=== PATIENT | male | born 1980 | race Two or more races ===

== ENCOUNTER 2019-10-26 09:40 | Observation (INO) | payer SELFPAY ==
[~2019-10-26] VITALS: Ht 167.6 cm; Wt 85.2 kg
[2019-10-26] MEDS ORDERED: IV NORMAL SALINE 1000ML BAG 1,000 ML IV ONE (10:15)
[2019-10-26 10:21] LABS: BASO # 0.1 x10^3/uL (0.0-0.2); BASO % 1 % (0-3); EOS # 0.1 x10^3/uL (0.0-0.7); EOS % 1 % (0-3); HEMATOCRIT 36.5 % (39.0-53.0); HEMOGLOBIN 12.5 g/dL (13.0-17.5); LYMPH # 2.5 x10^3/uL (1.0-4.8); LYMPH % 23 % (24-48); MEAN CORPUSCULAR HEMOGLOBIN 30 pg (25-35); MEAN CORPUSCULAR HGB CONC 34 g/dL (31-37); MEAN CORPUSCULAR VOLUME 89 fL (79-100); MONO # 0.9 x10^3/uL (0.0-1.1); MONO % 8 % (0-9); NEUT # 7.2 x10^3/uL (1.8-7.7); NEUT % 67 % (31-73); PLATELET COUNT 302 x10^3/uL (140-400); RED CELL DISTRIBUTION WIDTH 13.2 % (11.5-14.5); WHITE BLOOD COUNT 10.7 x10^3/uL (4.0-11.0)
[2019-10-26 10:22] LABS: BILIRUBIN,URINE NEGATIVE (NEG); CLARITY,URINE CLEAR; COLOR,URINE YELLOW; NITRITE,URINE NEGATIVE (NEG); PH,URINE 5.5 (<5.0-8.0); PROTEIN,URINE NEGATIVE (NEG-TRACE); UROBILINOGEN,URINE 0.2 mg/dL (0.2 mg/dL)
[2019-10-26 10:28] LABS: CALCIUM 9.1 mg/dL (8.5-10.1); GFR 82.8; POTASSIUM 3.6 mmol/L (3.5-5.1)
[2019-10-26 10:30] LABS: AMORPHOUS SEDIMENT,UR PRESENT /HPF; BACTERIA,URINE FEW /HPF (0-FEW); HYALINE CASTS, URINE FEW /HPF; RBC,URINE 0 /HPF (0-2); SQUAMOUS EPITHELIAL CELL,UR OCC /LPF
[2019-10-26 10:35] LABS: ALBUMIN 3.7 g/dL (3.4-5.0); ALBUMIN/GLOBULIN RATIO 1.2 (1.0-1.7); TOTAL BILIRUBIN 0.2 mg/dL (0.2-1.0); TOTAL PROTEIN 6.8 g/dL (6.4-8.2)
[2019-10-26] MEDS ORDERED: IOHEXOL 240 MG/ML 50ML VIAL. PO ONE (11:00)
[2019-10-26] MEDS ORDERED: IOHEXOL 300 MG/ML 100ML VIAL. IV ONE (11:00)
--- NOTE | 2019-10-26 11:59 | PHYS DOC ---
Past Medical History Past Medical History: Other Additional Past Medical Histor: GASTRIC ULCER Past Surgical History: No Surgical History Smoking Status: Never Smoker Alcohol Use: None General Adult EDM: Chief Complaint: ABDOMINAL PAIN HPI: HPI: Patient is a 38 year old male who presents with who presents to the Emergency Room complaining of mid abdominal pain that has been going on "for awhile." He believes he had an abdominal ulcer. He states it has been getting worse. Denies any associated nausea, vomiting, diarrhea, fever, anorexia. He had some blood in his stools last week, however this has resolved. Review of Systems: Review of Systems: General: Denies fever, chills, sweats, fatigue Eyes: Denies drainage, blurred vision HENT: Denies rhinorrhea, sore throat Respiratory: Denies cough, shortness of breath, wheezing Cardiac: Denies edema, palpitations, chest pain GI: Denies N/V reports abdominal pain MSK: Denies back pain, neck pain Skin: Denies rash, jaundice Neuro: Denies headache, dizziness Psychiatric: Denies SI/HI Heart Score: Risk Factors: Risk Factors: DM, Current or recent (<one month) smoker, HTN, HLP, family history of CAD, obesity. Risk Scores: Score 0 - 3: 2.5% MACE over next 6 weeks - Discharge Home Score 4 - 6: 20.3% MACE over next 6 weeks - Admit for Clinical Observation Score 7 - 10: 72.7% MACE over next 6 weeks - Early Invasive Strategies Current Medications: Current Medications Medications (Trade) Dose Ordered Sig/Tasneem Start Time Stop Time Status Last Admin Dose Admin Iohexol (Omnipaque 240 Mg/ml) 30 ml 1X ONCE 10/26/19 11:00 10/26/19 11:01 DC Iohexol (Omnipaque 300 Mg/ml) 75 ml 1X ONCE 10/26/19 11:00 10/26/19 11:01 DC Sodium Chloride 1,000 ml @ 0 mls/hr 1X ONCE 10/26/19 10:15 10/26/19 10:17 DC 10/26/19 10:19 999 MLS/HR Allergies: Allergies: Allergies Coded Allergies Type Severity Reaction Last Updated Verified No Known Drug Allergies 10/26/19 No Physical Exam: PE: Constitutional: Well developed, well nourished, Cooperative, NAD, non-toxic appearing HEENT: Normocephalic, atraumatic, oropharynx moist, EOMI, PERRL, no drainage from eyes, normal conjunctiva Neck: Supple, normal range of motion, no stridor Cardiovascular: RRR, 2+ radial pulses bilaterally, no edema Respiratory: CTA bilaterally, no respiratory distress, no wheezing/crackles Abdomen: Soft, nontender, nondistended, no masses Skin: Warm, dry, intact Extremities: No obvious deformities Neurologic: Alert and Oriented x3, motor and sensory function grossly normal, no focal deficits Psychologic: Normal affect, normal judgment, normal mood. No SI/HI Current Patient Data: Labs: Laboratory Tests Test 10/26/19 10:04 White Blood Count 10.7 x10^3/uL (4.0-11.0) Red Blood Count 4.10 x10^6/uL (4.30-5.70) L Hemoglobin 12.5 g/dL (13.0-17.5) L Hematocrit 36.5 % (39.0-53.0) L Mean Corpuscular Volume 89 fL (79-100) Mean Corpuscular Hemoglobin 30 pg (25-35) Mean Corpuscular Hemoglobin Concent 34 g/dL (31-37) Red Cell Distribution Width 13.2 % (11.5-14.5) Platelet Count 302 x10^3/uL (140-400) Neutrophils (%) (Auto) 67 % (31-73) Lymphocytes (%) (Auto) 23 % (24-48) L Monocytes (%) (Auto) 8 % (0-9) Eosinophils (%) (Auto) 1 % (0-3) Basophils (%) (Auto) 1 % (0-3) Neutrophils # (Auto) 7.2 x10^3/uL (1.8-7.7) Lymphocytes # (Auto) 2.5 x10^3/uL (1.0-4.8) Monocytes # (Auto) 0.9 x10^3/uL (0.0-1.1) Eosinophils # (Auto) 0.1 x10^3/uL (0.0-0.7) Basophils # (Auto) 0.1 x10^3/uL (0.0-0.2) Urine Collection Type Void Urine Color Yellow Urine Clarity Clear Urine pH 5.5 (<5.0-8.0) Urine Specific [place] >=1.030 (1.000-1.030) Urine Protein Negative mg/dL (NEG-TRACE) Urine Glucose (UA) Negative mg/dL (NEG) Urine Ketones (Stick) Negative mg/dL (NEG) Urine Blood Negative (NEG) Urine Nitrite Negative (NEG) Urine Bilirubin Negative (NEG) Urine Urobilinogen Dipstick 0.2 mg/dL (0.2 mg/dL) Urine Leukocyte Esterase Negative (NEG) Urine RBC 0 /HPF (0-2) Urine WBC 1-4 /HPF (0-4) Urine Squamous Epithelial Cells Occ /LPF Urine Amorphous Sediment Present /HPF Urine Bacteria Few /HPF (0-FEW) Urine Hyaline Casts Few /HPF Urine Mucus Marked /LPF Sodium Level 137 mmol/L (136-145) Potassium Level 3.6 mmol/L (3.5-5.1) Chloride Level 101 mmol/L (98-107) Carbon Dioxide Level 26 mmol/L (21-32) Anion Gap 10 (6-14) Blood Urea Nitrogen 24 mg/dL (8-26) Creatinine 1.0 mg/dL (0.7-1.3) Estimated GFR (Cockcroft-Gault) 82.8 BUN/Creatinine Ratio 24 (6-20) H Glucose Level 134 mg/dL (70-99) H Calcium Level 9.1 mg/dL (8.5-10.1) Total Bilirubin 0.2 mg/dL (0.2-1.0) Aspartate Amino Transferase (AST) 28 U/L (15-37) Alanine Aminotransferase (ALT) 37 U/L (16-63) Alkaline Phosphatase 99 U/L (46-116) Total Protein 6.8 g/dL (6.4-8.2) Albumin 3.7 g/dL (3.4-5.0) Albumin/Globulin Ratio 1.2 (1.0-1.7) Lipase 96 U/L (73-393) Laboratory Tests 10/26/19 10:04 Laboratory Tests 10/26/19 10:04 Vital Signs: Vital Signs Date Time Temp Pulse Resp B/P (MAP) Pulse Ox O2 Delivery O2 Flow Rate FiO2 10/26/19 11:25 104 123/72 (89) 98 Room Air 10/26/19 09:55 98.7 24 98.7 EKG: EKG: [] Radiology/Procedures: Radiology/Procedures: [] Course & Med Decision Making: Course & Med Decision Making Pertinent Labs and Imaging studies reviewed. (See chart for details) Patient is a 38 year old male who presents to the Emergency Room complaining of abdominal pain that is acutely worsening. Abdominal labs and CT a/p were ordered due to patient's tenderness and tachycardia. Patient has duodenitis and likely duodenal ulcer which raises concern for H pylori. He also has a mass on his kidney that could be a hemorrhagic cyst versus cancer. Radiology is recommending an MRI. Patient will be admitted for evaluation of this mass as well as evaluation of his likely ulcer. Dragon Disclaimer: Dragon Disclaimer: This electronic medical record was generated, in whole or in part, using a voice recognition dictation system. Departure Departure Impression: Primary Impression: Duodenitis Additional Impression: Right kidney mass Disposition: ADMITTED INPATIENT Referrals: NO PCP (PCP) Justicifation of Admission Dx: Justifications for Admission: Justification of Admission Dx: Yes DIPESH LEVY MD Oct 26, 2019 11:58
--- NOTE | 2019-10-26 12:38 | RAD ---
CT of the abdomen and pelvis with contrast 10/26/2019 12:28 PM Indication: Reason: abdominal pain Comparison study: None Technique: Multidetector CT imaging of the abdomen and pelvis was performed following the administration of IV contrast. Findings: The partially visualized lung bases demonstrate no acute abnormality. There is periduodenal fat stranding possible mild thickening of the duodenal wall. Evaluation is limited without oral contrast. No pneumoperitoneum is identified. Findings could reflect mild duodenitis. Duodenal ulcer could produce this appearance. Small lymph nodes are seen adjacent to the duodenum, slightly more prominent than is typically seen, but not pathologically enlarged by size criterion. The liver, gallbladder, spleen, and adrenal glands are unremarkable.The pancreas is unremarkable in appearance. Left kidney is normal in appearance. There is an exophytic lesion arising from the right kidney measuring is 1.3 cm partially cystic mass arising from the lateral right kidney. Attenuation characteristics are greater than the expected for a simple appearing cyst. A multiphase renal protocol MRI or CT scan is recommended for further characterization. No acute osseous changes are seen. IMPRESSION: 1. Relatively mild appearing periduodenal inflammatory change and mild adjacent lymph nodes While nonspecific findings could reflect duodenitis or duodenal ulcer. Consider endoscopy as clinically indicated. 2. 1.3 cm nonspecific mass arising from the lateral right kidney. Differential considerations include an atypical hemorrhagic cyst versus solid mass/neoplasm. Multiphase renal protocol CT/MRI recommended for further characterization CT DOSING PQRS STATEMENT: One or more of the following individualized dose reduction techniques were utilized for this examination: 1. Automated exposure control 2. Adjustment of the mA and/or kV according to patient size 3. Use of iterative reconstruction technique Electronically signed by: Eric Vega MD (10/26/2019 12:35 PM) [id number]
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
[2019-10-26] MEDS: IV NORMAL SALINE 1000ML BAG 1,000 ML IV SCH (16:13)
[2019-10-26] MEDS: PANTOPRAZOLE IV PUSH 40 MG VIAL. IVP SCH (16:13)
[2019-10-26 19:00] VITALS: BP 134/82
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
[2019-10-26 23:00] VITALS: BP 133/81
[2019-10-26] MEDS ORDERED: ZOLPIDEM 5 MG TABLET. PO PRN (23:00)
[2019-10-27 03:00] VITALS: BP 136/89
[2019-10-27 04:47] LABS: HEMATOCRIT 31.9 % (39.0-53.0); HEMOGLOBIN 10.9 g/dL (13.0-17.5); RED BLOOD COUNT 3.55 x10^6/uL (4.30-5.70); RED CELL DISTRIBUTION WIDTH 13.2 % (11.5-14.5); WHITE BLOOD COUNT 8.5 x10^3/uL (4.0-11.0)
[2019-10-27] MEDS: IV NORMAL SALINE 1000ML BAG 1,000 ML IV SCH (05:15)
[2019-10-27 05:16] LABS: CREATININE 0.8 mg/dL (0.7-1.3); GFR 107.1
[2019-10-27 07:00] VITALS: BP 143/87
[2019-10-27] MEDS: PANTOPRAZOLE IV PUSH 40 MG VIAL. IVP SCH (08:51)
--- NOTE | 2019-10-27 09:16 | PDOC ---
PROGRESS NOTES History of Present Illness History of Present Illness ASSESSMENT AND PLAN: Abdominal pain possible duodenal ulcer incidental finding of 1.3 cm renal mass versus a cyst. 1.3 cm nonspecific mass arising from the lateral right kidney. Differential considerations include an atypical hemorrhagic cyst versus solid mass/neoplasm admitted, proton pump inhibitors, consult GI. Trend hemoglobin. Regarding the renal mass WE do not have Urology here. Home meds, DVTprophylaxis. Full code. P.r.n. pain meds, p.r.n. Zofran. not overtly bleeding so no need for endoscopy Vitals Vitals Vital Signs Date Time Temp Pulse Resp B/P (MAP) Pulse Ox O2 Delivery O2 Flow Rate FiO2 10/27/19 07:00 98.1 90 16 143/87 (105) 98 Room Air 98.1 Physical Exam Physical Exam EYES: Extraocular muscles are intact, pupils are equally round and reactive to light and accommodation MUSCULOSKELETAL: Well developed, well nourished, good range of motion ENDOCRINE: No thyromegaly was palpated LYMPHATICS: No cervical chain or axillary nodes were noted HEMATOPOIETIC: No bruising NECK: Supple, no JVD, no thyromegaly was noted. LUNGS: Clear to auscultation in all lung spencer without rhonchi or wheezing. HEART: RRR, S1, S2 present. Peripheral pulses intact, no obvious murmurs were noted. ABDOMEN: Soft, nontender. Positive bowel sounds no organomegaly, normal bowel sounds. EXTREMITIES: Without any cyanosis, clubbing, or edema. Pedal pulses intact, Homans sign is negative. NEUROLOGIC: Normal speech, normal tone. A & O x3, moves all extremities, no obvious focal deficits. PSYCHIATRIC: Normal affect, normal mood. Stable. SKIN: No ulcerations or rashes, good skin turgor, no jaundice. VASCULAR: Good capillary refill, neurovascular bundle appears to be intact. General: Alert, Oriented X3, Cooperative, No acute distress Heart: Regular rate, No murmurs Lungs: Clear Abdomen: Normal bowel sounds, Soft, No tenderness Extremities: No cyanosis, No edema Skin: No breakdown, No significant lesion Labs LABS CT of the abdomen and pelvis with contrast 10/26/2019 12:28 PM Indication: Reason: abdominal pain Comparison study: None Technique: Multidetector CT imaging of the abdomen and pelvis was performed following the administration of IV contrast. Findings: The partially visualized lung bases demonstrate no acute abnormality. There is periduodenal fat stranding possible mild thickening of the duodenal wall. Evaluation is limited without oral contrast. No pneumoperitoneum is identified. Findings could reflect mild duodenitis. Duodenal ulcer could produce this appearance. Small lymph nodes are seen adjacent to the duodenum, slightly more prominent than is typically seen, but not pathologically enlarged by size criterion. The liver, gallbladder, spleen, and adrenal glands are unremarkable.The pancreas is unremarkable in appearance. Left kidney is normal in appearance. There is an exophytic lesion arising from the right kidney measuring is 1.3 cm partially cystic mass arising from the lateral right kidney. Attenuation characteristics are greater than the expected for a simple appearing cyst. A multiphase renal protocol MRI or CT scan is recommended for further characterization. No acute osseous changes are seen. IMPRESSION: 1. Relatively mild appearing periduodenal inflammatory change and mild adjacent lymph nodes While nonspecific findings could reflect duodenitis or duodenal ulcer. Consider endoscopy as clinically indicated. 2. 1.3 cm nonspecific mass arising from the lateral right kidney. Differential considerations include an atypical hemorrhagic cyst versus solid mass/neoplasm. Multiphase renal protocol CT/MRI recommended for further characterization CT DOSING PQRS STATEMENT: One or more of the following individualized dose reduction techniques were utilized for this examination: 1. Automated exposure control 2. Adjustment of the mA and/or kV according to patient size 3. Use of iterative reconstruction technique Electronically signed by: Eric Wong MD (10/26/2019 12:35 PM) [id number] DICTATED and SIGNED BY: ERIC WONG MD DATE: 10/26/19 1235 Laboratory Tests Test 10/26/19 10:04 10/27/19 03:40 White Blood Count 10.7 x10^3/uL (4.0-11.0) 8.5 x10^3/uL (4.0-11.0) Red Blood Count 4.10 x10^6/uL (4.30-5.70) 3.55 x10^6/uL (4.30-5.70) Hemoglobin 12.5 g/dL (13.0-17.5) 10.9 g/dL (13.0-17.5) Hematocrit 36.5 % (39.0-53.0) 31.9 % (39.0-53.0) Mean Corpuscular Volume 89 fL (79-100) 90 fL (79-100) Mean Corpuscular Hemoglobin 30 pg (25-35) 31 pg (25-35) Mean Corpuscular Hemoglobin Concent 34 g/dL (31-37) 34 g/dL (31-37) Red Cell Distribution Width 13.2 % (11.5-14.5) 13.2 % (11.5-14.5) Platelet Count 302 x10^3/uL (140-400) 259 x10^3/uL (140-400) Neutrophils (%) (Auto) 67 % (31-73) Lymphocytes (%) (Auto) 23 % (24-48) Monocytes (%) (Auto) 8 % (0-9) Eosinophils (%) (Auto) 1 % (0-3) Basophils (%) (Auto) 1 % (0-3) Neutrophils # (Auto) 7.2 x10^3/uL (1.8-7.7) Lymphocytes # (Auto) 2.5 x10^3/uL (1.0-4.8) Monocytes # (Auto) 0.9 x10^3/uL (0.0-1.1) Eosinophils # (Auto) 0.1 x10^3/uL (0.0-0.7) Basophils # (Auto) 0.1 x10^3/uL (0.0-0.2) Urine Collection Type Void Urine Color Yellow Urine Clarity Clear Urine pH 5.5 (<5.0-8.0) Urine Specific [place] >=1.030 (1.000-1.030) Urine Protein Negative mg/dL (NEG-TRACE) Urine Glucose (UA) Negative mg/dL (NEG) Urine Ketones (Stick) Negative mg/dL (NEG) Urine Blood Negative (NEG) Urine Nitrite Negative (NEG) Urine Bilirubin Negative (NEG) Urine Urobilinogen Dipstick 0.2 mg/dL (0.2 mg/dL) Urine Leukocyte Esterase Negative (NEG) Urine RBC 0 /HPF (0-2) Urine WBC 1-4 /HPF (0-4) Urine Squamous Epithelial Cells Occ /LPF Urine Amorphous Sediment Present /HPF Urine Bacteria Few /HPF (0-FEW) Urine Hyaline Casts Few /HPF Urine Mucus Marked /LPF Sodium Level 137 mmol/L (136-145) 135 mmol/L (136-145) Potassium Level 3.6 mmol/L (3.5-5.1) 4.0 mmol/L (3.5-5.1) Chloride Level 101 mmol/L (98-107) 102 mmol/L (98-107) Carbon Dioxide Level 26 mmol/L (21-32) 25 mmol/L (21-32) Anion Gap 10 (6-14) 8 (6-14) Blood Urea Nitrogen 24 mg/dL (8-26) 19 mg/dL (8-26) Creatinine 1.0 mg/dL (0.7-1.3) 0.8 mg/dL (0.7-1.3) Estimated GFR (Cockcroft-Gault) 82.8 107.1 BUN/Creatinine Ratio 24 (6-20) Glucose Level 134 mg/dL (70-99) 92 mg/dL (70-99) Calcium Level 9.1 mg/dL (8.5-10.1) 8.0 mg/dL (8.5-10.1) Total Bilirubin 0.2 mg/dL (0.2-1.0) Aspartate Amino Transf (AST/SGOT) 28 U/L (15-37) Alanine Aminotransferase (ALT/SGPT) 37 U/L (16-63) Alkaline Phosphatase 99 U/L (46-116) Total Protein 6.8 g/dL (6.4-8.2) Albumin 3.7 g/dL (3.4-5.0) Albumin/Globulin Ratio 1.2 (1.0-1.7) Lipase 96 U/L (73-393) Assessment and Plan Assessmemt and Plan Problems Medical Problems: (1) Duodenitis Status: Acute (2) Right kidney mass Status: Acute Comment Review of Relevant I have reviewed the following items rosa (where applicable) has been applied. Labs Laboratory Tests Test 10/26/19 10:04 10/27/19 03:40 White Blood Count 10.7 x10^3/uL (4.0-11.0) 8.5 x10^3/uL (4.0-11.0) Red Blood Count 4.10 x10^6/uL (4.30-5.70) 3.55 x10^6/uL (4.30-5.70) Hemoglobin 12.5 g/dL (13.0-17.5) 10.9 g/dL (13.0-17.5) Hematocrit 36.5 % (39.0-53.0) 31.9 % (39.0-53.0) Mean Corpuscular Volume 89 fL (79-100) 90 fL (79-100) Mean Corpuscular Hemoglobin 30 pg (25-35) 31 pg (25-35) Mean Corpuscular Hemoglobin Concent 34 g/dL (31-37) 34 g/dL (31-37) Red Cell Distribution Width 13.2 % (11.5-14.5) 13.2 % (11.5-14.5) Platelet Count 302 x10^3/uL (140-400) 259 x10^3/uL (140-400) Neutrophils (%) (Auto) 67 % (31-73) Lymphocytes (%) (Auto) 23 % (24-48) Monocytes (%) (Auto) 8 % (0-9) Eosinophils (%) (Auto) 1 % (0-3) Basophils (%) (Auto) 1 % (0-3) Neutrophils # (Auto) 7.2 x10^3/uL (1.8-7.7) Lymphocytes # (Auto) 2.5 x10^3/uL (1.0-4.8) Monocytes # (Auto) 0.9 x10^3/uL (0.0-1.1) Eosinophils # (Auto) 0.1 x10^3/uL (0.0-0.7) Basophils # (Auto) 0.1 x10^3/uL (0.0-0.2) Urine Collection Type Void Urine Color Yellow Urine Clarity Clear Urine pH 5.5 (<5.0-8.0) Urine Specific [place] >=1.030 (1.000-1.030) Urine Protein Negative mg/dL (NEG-TRACE) Urine Glucose (UA) Negative mg/dL (NEG) Urine Ketones (Stick) Negative mg/dL (NEG) Urine Blood Negative (NEG) Urine Nitrite Negative (NEG) Urine Bilirubin Negative (NEG) Urine Urobilinogen Dipstick 0.2 mg/dL (0.2 mg/dL) Urine Leukocyte Esterase Negative (NEG) Urine RBC 0 /HPF (0-2) Urine WBC 1-4 /HPF (0-4) Urine Squamous Epithelial Cells Occ /LPF Urine Amorphous Sediment Present /HPF Urine Bacteria Few /HPF (0-FEW) Urine Hyaline Casts Few /HPF Urine Mucus Marked /LPF Sodium Level 137 mmol/L (136-145) 135 mmol/L (136-145) Potassium Level 3.6 mmol/L (3.5-5.1) 4.0 mmol/L (3.5-5.1) Chloride Level 101 mmol/L (98-107) 102 mmol/L (98-107) Carbon Dioxide Level 26 mmol/L (21-32) 25 mmol/L (21-32) Anion Gap 10 (6-14) 8 (6-14) Blood Urea Nitrogen 24 mg/dL (8-26) 19 mg/dL (8-26) Creatinine 1.0 mg/dL (0.7-1.3) 0.8 mg/dL (0.7-1.3) Estimated GFR (Cockcroft-Gault) 82.8 107.1 BUN/Creatinine Ratio 24 (6-20) Glucose Level 134 mg/dL (70-99) 92 mg/dL (70-99) Calcium Level 9.1 mg/dL (8.5-10.1) 8.0 mg/dL (8.5-10.1) Total Bilirubin 0.2 mg/dL (0.2-1.0) Aspartate Amino Transf (AST/SGOT) 28 U/L (15-37) Alanine Aminotransferase (ALT/SGPT) 37 U/L (16-63) Alkaline Phosphatase 99 U/L (46-116) Total Protein 6.8 g/dL (6.4-8.2) Albumin 3.7 g/dL (3.4-5.0) Albumin/Globulin Ratio 1.2 (1.0-1.7) Lipase 96 U/L (73-393) Laboratory Tests Test 10/26/19 10:04 10/27/19 03:40 White Blood Count 10.7 x10^3/uL (4.0-11.0) 8.5 x10^3/uL (4.0-11.0) Red Blood Count 4.10 x10^6/uL (4.30-5.70) 3.55 x10^6/uL (4.30-5.70) Hemoglobin 12.5 g/dL (13.0-17.5) 10.9 g/dL (13.0-17.5) Hematocrit 36.5 % (39.0-53.0) 31.9 % (39.0-53.0) Mean Corpuscular Volume 89 fL (79-100) 90 fL (79-100) Mean Corpuscular Hemoglobin 30 pg (25-35) 31 pg (25-35) Mean Corpuscular Hemoglobin Concent 34 g/dL (31-37) 34 g/dL (31-37) Red Cell Distribution Width 13.2 % (11.5-14.5) 13.2 % (11.5-14.5) Platelet Count 302 x10^3/uL (140-400) 259 x10^3/uL (140-400) Neutrophils (%) (Auto) 67 % (31-73) Lymphocytes (%) (Auto) 23 % (24-48) Monocytes (%) (Auto) 8 % (0-9) Eosinophils (%) (Auto) 1 % (0-3) Basophils (%) (Auto) 1 % (0-3) Neutrophils # (Auto) 7.2 x10^3/uL (1.8-7.7) Lymphocytes # (Auto) 2.5 x10^3/uL (1.0-4.8) Monocytes # (Auto) 0.9 x10^3/uL (0.0-1.1) Eosinophils # (Auto) 0.1 x10^3/uL (0.0-0.7) Basophils # (Auto) 0.1 x10^3/uL (0.0-0.2) Urine Collection Type Void Urine Color Yellow Urine Clarity Clear Urine pH 5.5 (<5.0-8.0) Urine Specific [place] >=1.030 (1.000-1.030) Urine Protein Negative mg/dL (NEG-TRACE) Urine Glucose (UA) Negative mg/dL (NEG) Urine Ketones (Stick) Negative mg/dL (NEG) Urine Blood Negative (NEG) Urine Nitrite Negative (NEG) Urine Bilirubin Negative (NEG) Urine Urobilinogen Dipstick 0.2 mg/dL (0.2 mg/dL) Urine Leukocyte Esterase Negative (NEG) Urine RBC 0 /HPF (0-2) Urine WBC 1-4 /HPF (0-4) Urine Squamous Epithelial Cells Occ /LPF Urine Amorphous Sediment Present /HPF Urine Bacteria Few /HPF (0-FEW) Urine Hyaline Casts Few /HPF Urine Mucus Marked /LPF Sodium Level 137 mmol/L (136-145) 135 mmol/L (136-145) Potassium Level 3.6 mmol/L (3.5-5.1) 4.0 mmol/L (3.5-5.1) Chloride Level 101 mmol/L (98-107) 102 mmol/L (98-107) Carbon Dioxide Level 26 mmol/L (21-32) 25 mmol/L (21-32) Anion Gap 10 (6-14) 8 (6-14) Blood Urea Nitrogen 24 mg/dL (8-26) 19 mg/dL (8-26) Creatinine 1.0 mg/dL (0.7-1.3) 0.8 mg/dL (0.7-1.3) Estimated GFR (Cockcroft-Gault) 82.8 107.1 BUN/Creatinine Ratio 24 (6-20) Glucose Level 134 mg/dL (70-99) 92 mg/dL (70-99) Calcium Level 9.1 mg/dL (8.5-10.1) 8.0 mg/dL (8.5-10.1) Total Bilirubin 0.2 mg/dL (0.2-1.0) Aspartate Amino Transf (AST/SGOT) 28 U/L (15-37) Alanine Aminotransferase (ALT/SGPT) 37 U/L (16-63) Alkaline Phosphatase 99 U/L (46-116) Total Protein 6.8 g/dL (6.4-8.2) Albumin 3.7 g/dL (3.4-5.0) Albumin/Globulin Ratio 1.2 (1.0-1.7) Lipase 96 U/L (73-393) Medications Current Medications Sodium Chloride 1,000 ml @ 0 mls/hr 1X ONCE IV Last administered on 10/26/19at 10:19; Start 10/26/19 at 10:15; Stop 10/26/19 at 10:17; Status DC Iohexol (Omnipaque 240 Mg/ml) 30 ml 1X ONCE PO Last administered on 10/26/19at 11:00; Start 10/26/19 at 11:00; Stop 10/26/19 at 11:01; Status DC Iohexol (Omnipaque 300 Mg/ml) 75 ml 1X ONCE IV Last administered on 10/26/19at 11:00; Start 10/26/19 at 11:00; Stop 10/26/19 at 11:01; Status DC Pantoprazole Sodium (PROTONIX VIAL for IV PUSH) 40 mg DAILYAC IVP Last administered on 10/27/19at 08:51; Start 10/26/19 at 15:30 Sodium Chloride 1,000 ml @ 75 mls/hr [id number] IV Last administered on 10/27/19at 05:15; Start 10/26/19 at 15:30 Zolpidem Tartrate (Ambien) 5 mg PRN QHS PRN PO INSOMNIA Last administered on 10/26/19at 23:15; Start 10/26/19 at 23:00 Active Scripts Active Reported No Known Medications Prior To Admisstion (Info) Each 1 Each DAILY Vitals/I & O Vital Sign - Last 24 Hours 10/26/19 10/26/19 10/26/19 10/26/19 09:55 09:55 10:25 10:55 Temp 98.7 98.7 Pulse 124 118 112 113 Resp 24 B/P (MAP) 181/94 (123) 181/94 (123) 131/58 (82) 114/70 (85) Pulse Ox 97 99 97 97 O2 Delivery Room Air Room Air Room Air Room Air 10/26/19 10/26/19 10/26/19 10/26/19 11:25 11:55 12:25 12:55 Pulse 104 104 104 98 B/P (MAP) 123/72 (89) 109/71 (84) 145/81 (102) 151/89 (109) Pulse Ox 98 98 99 99 O2 Delivery Room Air Room Air Room Air Room Air 10/26/19 10/26/19 10/26/19 10/26/19 13:25 13:55 14:25 16:00 Pulse 98 99 94 B/P (MAP) 141/85 (103) 135/87 (103) 138/83 (101) Pulse Ox 99 99 98 O2 Delivery Room Air Room Air Room Air Room Air 10/26/19 10/26/19 10/26/19 10/27/19 19:00 19:30 23:00 03:00 Temp 98.2 98.3 97.9 98.2 98.3 97.9 Pulse 88 84 74 Resp 18 18 18 B/P (MAP) 134/82 (99) 133/81 (98) 136/89 (105) Pulse Ox 97 97 99 O2 Delivery Room Air Room Air Room Air Room Air 10/27/19 07:00 Temp 98.1 98.1 Pulse 90 Resp 16 B/P (MAP) 143/87 (105) Pulse Ox 98 O2 Delivery Room Air Intake and Output 10/26/19 10/26/19 10/27/19 15:00 23:00 07:00 Intake Total 1000 ml 720 ml Balance 1000 ml 720 ml SOFIA IYER MD Oct 27, 2019 09:16
--- NOTE | 2019-10-27 09:47 | PDOC ---
Subjective: Subjective: Feels better. Says his food was taken away because the camera is going to go down to check. Hungry. Objective: Objective: 1 stool charted. Vital Signs: Vital Signs Date Time Temp Pulse Resp B/P (MAP) Pulse Ox O2 Delivery O2 Flow Rate FiO2 10/27/19 07:00 98.1 90 16 143/87 (105) 98 Room Air 98.1 Labs: Laboratory Tests Test 10/26/19 10:04 10/27/19 03:40 White Blood Count 10.7 x10^3/uL 8.5 x10^3/uL Red Blood Count 4.10 x10^6/uL 3.55 x10^6/uL Hemoglobin 12.5 g/dL 10.9 g/dL Hematocrit 36.5 % 31.9 % Mean Corpuscular Volume 89 fL 90 fL Mean Corpuscular Hemoglobin 30 pg 31 pg Mean Corpuscular Hemoglobin Concent 34 g/dL 34 g/dL Red Cell Distribution Width 13.2 % 13.2 % Platelet Count 302 x10^3/uL 259 x10^3/uL Neutrophils (%) (Auto) 67 % Lymphocytes (%) (Auto) 23 % Monocytes (%) (Auto) 8 % Eosinophils (%) (Auto) 1 % Basophils (%) (Auto) 1 % Neutrophils # (Auto) 7.2 x10^3/uL Lymphocytes # (Auto) 2.5 x10^3/uL Monocytes # (Auto) 0.9 x10^3/uL Eosinophils # (Auto) 0.1 x10^3/uL Basophils # (Auto) 0.1 x10^3/uL Urine Collection Type Void Urine Color Yellow Urine Clarity Clear Urine pH 5.5 Urine Specific [place] >=1.030 Urine Protein Negative mg/dL Urine Glucose (UA) Negative mg/dL Urine Ketones (Stick) Negative mg/dL Urine Blood Negative Urine Nitrite Negative Urine Bilirubin Negative Urine Urobilinogen Dipstick 0.2 mg/dL Urine Leukocyte Esterase Negative Urine RBC 0 /HPF Urine WBC 1-4 /HPF Urine Squamous Epithelial Cells Occ /LPF Urine Amorphous Sediment Present /HPF Urine Bacteria Few /HPF Urine Hyaline Casts Few /HPF Urine Mucus Marked /LPF Sodium Level 137 mmol/L 135 mmol/L Potassium Level 3.6 mmol/L 4.0 mmol/L Chloride Level 101 mmol/L 102 mmol/L Carbon Dioxide Level 26 mmol/L 25 mmol/L Anion Gap 10 8 Blood Urea Nitrogen 24 mg/dL 19 mg/dL Creatinine 1.0 mg/dL 0.8 mg/dL Estimated GFR (Cockcroft-Gault) 82.8 107.1 BUN/Creatinine Ratio 24 Glucose Level 134 mg/dL 92 mg/dL Calcium Level 9.1 mg/dL 8.0 mg/dL Total Bilirubin 0.2 mg/dL Aspartate Amino Transf (AST/SGOT) 28 U/L Alanine Aminotransferase (ALT/SGPT) 37 U/L Alkaline Phosphatase 99 U/L Total Protein 6.8 g/dL Albumin 3.7 g/dL Albumin/Globulin Ratio 1.2 Lipase 96 U/L PE: GEN: NAD - was sleeping LUNGS: CTAB HEART: RRR ABD: NABS, S/ND/NT NEURO/PSYCH: A & O 3 A/P: Epigastric pain, nausea, diarrhea - better Heartburn, h/o "ulcer" Anemia -- Double-checked w/ Dr. Hughes - as yesterday, no plans to 'scope so doesn't need to be NPO. ADAT, PO PPI, check iron. H. pylori pending. Justicifation of Admission Dx: Justifications for Admission: Justification of Admission Dx: Yes OMAR FRANCIS Oct 27, 2019 09:47
[2019-10-27] MEDS ORDERED: LIDO:MAALOX 1:1 20 ML SINGLE DOSE. PO PRN (10:00)
[2019-10-27 10:26] VITALS: BP 135/69
--- NOTE | 2019-10-27 10:33 | NUR ---
SW following. Discussed with RN, pt from home with family. Advancing diet from cle[facility]. [facility]CF[facility] following for self pay status. SW will continue to follow.
[2019-10-27 15:00] VITALS: BP 143/88
--- NOTE | 2019-10-27 15:30 | PDOC3 ---
Discharge Summary Date of Admission: Oct 26, 2019 Date of Discharge: Oct 27, 2019 Follow-Up: 3-5 days Admitting Diagnosis comment: DISCHARGE DX Abdominal pain possible duodenal ulcer incidental finding of 1.3 cm renal mass versus a cyst. 1.3 cm nonspecific mass arising from the lateral right kidney. Differential considerations include an atypical hemorrhagic cyst versus solid mass/neoplasm admitted, proton pump inhibitors, consult GI. Trend hemoglobin. Regarding the renal mass WE do not have Urology here. Home meds, DVTprophylaxis. Full code. P.r.n. pain meds, p.r.n. Zofran. not overtly bleeding so no need for endoscopy SEE UROLOGY SOON AT [facility] Vitals Vitals Vital Signs Date Time Temp Pulse Resp B/P (MAP) Pulse Ox O2 Delivery O2 Flow Rate FiO2 10/27/19 07:00 98.1 90 16 143/87 (105) 98 Room Air 98.1 Physical Exam Physical Exam EYES: Extraocular muscles are intact, pupils are equally round and reactive to light and accommodation MUSCULOSKELETAL: Well developed, well nourished, good range of motion ENDOCRINE: No thyromegaly was palpated LYMPHATICS: No cervical chain or axillary nodes were noted HEMATOPOIETIC: No bruising NECK: Supple, no JVD, no thyromegaly was noted. LUNGS: Clear to auscultation in all lung spencer without rhonchi or wheezing. HEART: RRR, S1, S2 present. Peripheral pulses intact, no obvious murmurs were noted. ABDOMEN: Soft, nontender. Positive bowel sounds no organomegaly, normal bowel sounds. EXTREMITIES: Without any cyanosis, clubbing, or edema. Pedal pulses intact, Homans sign is negative. NEUROLOGIC: Normal speech, normal tone. A & O x3, moves all extremities, no obvious focal deficits. PSYCHIATRIC: Normal affect, normal mood. Stable. SKIN: No ulcerations or rashes, good skin turgor, no jaundice. VASCULAR: Good capillary refill, neurovascular bundle appears to be intact. General: Alert, Oriented X3, Cooperative, No acute distress Heart: Regular rate, No murmurs Lungs: Clear Abdomen: Normal bowel sounds, Soft, No tenderness Extremities: No cyanosis, No edema Skin: No breakdown, No significant lesion Labs LABS CT of the abdomen and pelvis with contrast 10/26/2019 12:28 PM Indication: Reason: abdominal pain Comparison study: None Technique: Multidetector CT imaging of the abdomen and pelvis was performed following the administration of IV contrast. Findings: The partially visualized lung bases demonstrate no acute abnormality. There is periduodenal fat stranding possible mild thickening of the duodenal wall. Evaluation is limited without oral contrast. No pneumoperitoneum is identified. Findings could reflect mild duodenitis. Duodenal ulcer could produce this appearance. Small lymph nodes are seen adjacent to the duodenum, slightly more prominent than is typically seen, but not pathologically enlarged by size criterion. The liver, gallbladder, spleen, and adrenal glands are unremarkable.The pancreas is unremarkable in appearance. Left kidney is normal in appearance. There is an exophytic lesion arising from the right kidney measuring is 1.3 cm partially cystic mass arising from the lateral right kidney. Attenuation characteristics are greater than the expected for a simple appearing cyst. A multiphase renal protocol MRI or CT scan is recommended for further characterization. No acute osseous changes are seen. IMPRESSION: 1. Relatively mild appearing periduodenal inflammatory change and mild adjacent lymph nodes While nonspecific findings could reflect duodenitis or duodenal ulcer. Consider endoscopy as clinically indicated. 2. 1.3 cm nonspecific mass arising from the lateral right kidney. Differential considerations include an atypical hemorrhagic cyst versus solid mass/neoplasm. Multiphase renal protocol CT/MRI recommended for further characterization CT DOSING PQRS STATEMENT: One or more of the following individualized dose reduction techniques were utilized for this examination: 1. Automated exposure control 2. Adjustment of the mA and/or kV according to patient size 3. Use of iterative reconstruction technique Electronically signed by: Eric Vega MD (10/26/2019 12:35 PM) [id number] DICTATED and SIGNED BY: ERIC VEGA MD DATE: 10/26/19 1235 Laboratory Tests Test 10/26/19 10:04 10/27/19 03:40 White Blood Count 10.7 x10^3/uL (4.0-11.0) 8.5 x10^3/uL (4.0-11.0) Red Blood Count 4.10 x10^6/uL (4.30-5.70) 3.55 x10^6/uL (4.30-5.70) Hemoglobin 12.5 g/dL (13.0-17.5) 10.9 g/dL (13.0-17.5) Hematocrit 36.5 % (39.0-53.0) 31.9 % (39.0-53.0) Mean Corpuscular Volume 89 fL (79-100) 90 fL (79-100) Mean Corpuscular Hemoglobin 30 pg (25-35) 31 pg (25-35) Mean Corpuscular Hemoglobin Concent 34 g/dL (31-37) 34 g/dL (31-37) Red Cell Distribution Width 13.2 % (11.5-14.5) 13.2 % (11.5-14.5) Platelet Count 302 x10^3/uL (140-400) 259 x10^3/uL (140-400) Neutrophils (%) (Auto) 67 % (31-73) Lymphocytes (%) (Auto) 23 % (24-48) Monocytes (%) (Auto) 8 % (0-9) Eosinophils (%) (Auto) 1 % (0-3) Basophils (%) (Auto) 1 % (0-3) Neutrophils # (Auto) 7.2 x10^3/uL (1.8-7.7) Lymphocytes # (Auto) 2.5 x10^3/uL (1.0-4.8) Monocytes # (Auto) 0.9 x10^3/uL (0.0-1.1) Eosinophils # (Auto) 0.1 x10^3/uL (0.0-0.7) Basophils # (Auto) 0.1 x10^3/uL (0.0-0.2) Urine Collection Type Void Urine Color Yellow Urine Clarity Clear Urine pH 5.5 (<5.0-8.0) Urine Specific [place] >=1.030 (1.000-1.030) Urine Protein Negative mg/dL (NEG-TRACE) Urine Glucose (UA) Negative mg/dL (NEG) Urine Ketones (Stick) Negative mg/dL (NEG) Urine Blood Negative (NEG) Urine Nitrite Negative (NEG) Urine Bilirubin Negative (NEG) Urine Urobilinogen Dipstick 0.2 mg/dL (0.2 mg/dL) Urine Leukocyte Esterase Negative (NEG) Urine RBC 0 /HPF (0-2) Urine WBC 1-4 /HPF (0-4) Urine Squamous Epithelial Cells Occ /LPF Urine Amorphous Sediment Present /HPF Urine Bacteria Few /HPF (0-FEW) Urine Hyaline Casts Few /HPF Urine Mucus Marked /LPF Sodium Level 137 mmol/L (136-145) 135 mmol/L (136-145) Potassium Level 3.6 mmol/L (3.5-5.1) 4.0 mmol/L (3.5-5.1) Chloride Level 101 mmol/L (98-107) 102 mmol/L (98-107) Carbon Dioxide Level 26 mmol/L (21-32) 25 mmol/L (21-32) Anion Gap 10 (6-14) 8 (6-14) Blood Urea Nitrogen 24 mg/dL (8-26) 19 mg/dL (8-26) Creatinine 1.0 mg/dL (0.7-1.3) 0.8 mg/dL (0.7-1.3) Estimated GFR (Cockcroft-Gault) 82.8 107.1 BUN/Creatinine Ratio 24 (6-20) Glucose Level 134 mg/dL (70-99) 92 mg/dL (70-99) Calcium Level 9.1 mg/dL (8.5-10.1) 8.0 mg/dL (8.5-10.1) Total Bilirubin 0.2 mg/dL (0.2-1.0) Aspartate Amino Transf (AST/SGOT) 28 U/L (15-37) Alanine Aminotransferase (ALT/SGPT) 37 U/L (16-63) Alkaline Phosphatase 99 U/L (46-116) Total Protein 6.8 g/dL (6.4-8.2) Albumin 3.7 g/dL (3.4-5.0) Albumin/Globulin Ratio 1.2 (1.0-1.7) Lipase 96 U/L (73-393) FINAL DIAGNOSIS Problems Medical Problems: (1) Duodenitis Status: Acute (2) Right kidney mass Status: Acute Brief Hospital Course Mr. Frances is a 38 old [sex] who presented with [ PEPTIC ULCER DISEASE] CONDITION AT DISCHARGE: Improved Discharge Medications Current Medications Sodium Chloride 1,000 ml @ 0 mls/hr 1X ONCE IV Last administered on 10/26/19at 10:19; Start 10/26/19 at 10:15; Stop 10/26/19 at 10:17; Status DC Iohexol (Omnipaque 240 Mg/ml) 30 ml 1X ONCE PO Last administered on 10/26/19at 11:00; Start 10/26/19 at 11:00; Stop 10/26/19 at 11:01; Status DC Iohexol (Omnipaque 300 Mg/ml) 75 ml 1X ONCE IV Last administered on 10/26/19at 11:00; Start 10/26/19 at 11:00; Stop 10/26/19 at 11:01; Status DC Pantoprazole Sodium (PROTONIX VIAL for IV PUSH) 40 mg DAILYAC IVP Last administered on 10/27/19at 08:51; Start 10/26/19 at 15:30; Stop 10/27/19 at 09:48; Status DC Sodium Chloride 1,000 ml @ 75 mls/hr [id number] IV Last administered on 10/27/19at 05:15; Start 10/26/19 at 15:30 Zolpidem Tartrate (Ambien) 5 mg PRN QHS PRN PO INSOMNIA Last administered on 10/26/19at 23:15; Start 10/26/19 at 23:00 Pantoprazole Sodium (Protonix) 40 mg DAILYAC PO ; Start 10/28/19 at 07:30 Multi-Ingredient Mouthwash/Gargle (Gi Cocktail) 20 ml PRN QID PRN PO abd pain; Start 10/27/19 at 10:00 Active Scripts Active Reported No Known Medications Prior To Admisstion (Info) Each 1 Each DAILY Vital Signs Vital Signs Date Time Temp Pulse Resp B/P (MAP) Pulse Ox O2 Delivery O2 Flow Rate FiO2 10/27/19 10:26 98.2 79 18 135/69 (91) 98 Room Air 98.2 Labs Laboratory Tests Test 10/26/19 10:04 10/27/19 03:40 White Blood Count 10.7 x10^3/uL (4.0-11.0) 8.5 x10^3/uL (4.0-11.0) Red Blood Count 4.10 x10^6/uL (4.30-5.70) 3.55 x10^6/uL (4.30-5.70) Hemoglobin 12.5 g/dL (13.0-17.5) 10.9 g/dL (13.0-17.5) Hematocrit 36.5 % (39.0-53.0) 31.9 % (39.0-53.0) Mean Corpuscular Volume 89 fL (79-100) 90 fL (79-100) Mean Corpuscular Hemoglobin 30 pg (25-35) 31 pg (25-35) Mean Corpuscular Hemoglobin Concent 34 g/dL (31-37) 34 g/dL (31-37) Red Cell Distribution Width 13.2 % (11.5-14.5) 13.2 % (11.5-14.5) Platelet Count 302 x10^3/uL (140-400) 259 x10^3/uL (140-400) Neutrophils (%) (Auto) 67 % (31-73) Lymphocytes (%) (Auto) 23 % (24-48) Monocytes (%) (Auto) 8 % (0-9) Eosinophils (%) (Auto) 1 % (0-3) Basophils (%) (Auto) 1 % (0-3) Neutrophils # (Auto) 7.2 x10^3/uL (1.8-7.7) Lymphocytes # (Auto) 2.5 x10^3/uL (1.0-4.8) Monocytes # (Auto) 0.9 x10^3/uL (0.0-1.1) Eosinophils # (Auto) 0.1 x10^3/uL (0.0-0.7) Basophils # (Auto) 0.1 x10^3/uL (0.0-0.2) Urine Collection Type Void Urine Color Yellow Urine Clarity Clear Urine pH 5.5 (<5.0-8.0) Urine Specific [place] >=1.030 (1.000-1.030) Urine Protein Negative mg/dL (NEG-TRACE) Urine Glucose (UA) Negative mg/dL (NEG) Urine Ketones (Stick) Negative mg/dL (NEG) Urine Blood Negative (NEG) Urine Nitrite Negative (NEG) Urine Bilirubin Negative (NEG) Urine Urobilinogen Dipstick 0.2 mg/dL (0.2 mg/dL) Urine Leukocyte Esterase Negative (NEG) Urine RBC 0 /HPF (0-2) Urine WBC 1-4 /HPF (0-4) Urine Squamous Epithelial Cells Occ /LPF Urine Amorphous Sediment Present /HPF Urine Bacteria Few /HPF (0-FEW) Urine Hyaline Casts Few /HPF Urine Mucus Marked /LPF Sodium Level 137 mmol/L (136-145) 135 mmol/L (136-145) Potassium Level 3.6 mmol/L (3.5-5.1) 4.0 mmol/L (3.5-5.1) Chloride Level 101 mmol/L (98-107) 102 mmol/L (98-107) Carbon Dioxide Level 26 mmol/L (21-32) 25 mmol/L (21-32) Anion Gap 10 (6-14) 8 (6-14) Blood Urea Nitrogen 24 mg/dL (8-26) 19 mg/dL (8-26) Creatinine 1.0 mg/dL (0.7-1.3) 0.8 mg/dL (0.7-1.3) Estimated GFR (Cockcroft-Gault) 82.8 107.1 BUN/Creatinine Ratio 24 (6-20) Glucose Level 134 mg/dL (70-99) 92 mg/dL (70-99) Calcium Level 9.1 mg/dL (8.5-10.1) 8.0 mg/dL (8.5-10.1) Total Bilirubin 0.2 mg/dL (0.2-1.0) Aspartate Amino Transf (AST/SGOT) 28 U/L (15-37) Alanine Aminotransferase (ALT/SGPT) 37 U/L (16-63) Alkaline Phosphatase 99 U/L (46-116) Total Protein 6.8 g/dL (6.4-8.2) Albumin 3.7 g/dL (3.4-5.0) Albumin/Globulin Ratio 1.2 (1.0-1.7) Lipase 96 U/L (73-393) Iron Level 58 ug/dL (65-175) Total Iron Binding Capacity 311 ug/dL (250-450) Iron Saturation 19 % (15-34) Laboratory Tests Test 10/27/19 03:40 White Blood Count 8.5 x10^3/uL (4.0-11.0) Red Blood Count 3.55 x10^6/uL (4.30-5.70) Hemoglobin 10.9 g/dL (13.0-17.5) Hematocrit 31.9 % (39.0-53.0) Mean Corpuscular Volume 90 fL (79-100) Mean Corpuscular Hemoglobin 31 pg (25-35) Mean Corpuscular Hemoglobin Concent 34 g/dL (31-37) Red Cell Distribution Width 13.2 % (11.5-14.5) Platelet Count 259 x10^3/uL (140-400) Sodium Level 135 mmol/L (136-145) Potassium Level 4.0 mmol/L (3.5-5.1) Chloride Level 102 mmol/L (98-107) Carbon Dioxide Level 25 mmol/L (21-32) Anion Gap 8 (6-14) Blood Urea Nitrogen 19 mg/dL (8-26) Creatinine 0.8 mg/dL (0.7-1.3) Estimated GFR (Cockcroft-Gault) 107.1 Glucose Level 92 mg/dL (70-99) Calcium Level 8.0 mg/dL (8.5-10.1) Iron Level 58 ug/dL (65-175) Total Iron Binding Capacity 311 ug/dL (250-450) Iron Saturation 19 % (15-34) Allergies Allergies Coded Allergies Type Severity Reaction Last Updated Verified No Known Drug Allergies 10/26/19 No Disposition/Orders: D/C to Home Patient Instructions SEE PCP RADHA, UROLOGY AT [facility] Justicifation of Admission Dx: Justifications for Admission: Justification of Admission Dx: Yes SOFIA IYER MD Oct 27, 2019 15:30
[2019-10-27] MEDS ORDERED: PANT40TA77 PO (15:31)
--- NOTE | 2019-10-27 15:35 | DISCH ---
DISCHARGE INSTRUCTIONS Condition on Discharge Condition on Discharge: Stable Activity After Discharge Activity Instructions for Disc: Activity as tolerated Lifting Instructions after Dis: No heavy lifting, No pulling or pushing Driving Instructions after Dis: Do not drive today Diet after Discharge Diet after Discharge: Regular Liquid Texture: Thin Liquid Wound Incision Care Wound/Incision Care: Ice to area for comfort Checks after Discharge Checks after discharge: Check blood press - daily Contacting the DR. after DC Call your doctor for: If your condition worsens Treatment/Equipment after DC Adaptive Equipment Issued: None Warfarin Follow-Up Warfarin Follow UP: SEE PCP RADHA, UROLOGY SOFIA THOMPSON MD Oct 27, 2019 15:34
--- NOTE | 2019-10-27 17:00 | NUR ---
DISCHARGE INSTRUCTIONS GIVEN, QUESTIONS AND CONCERNS ANSWERED, PATIENT VERBALIZED UNDERSTANDING OF DISCHARGE INFORMATION INCLUDING TAKING ALL MEDICATIONS INSTRUCTED AND FOLLOWING UP WITH HIS PRIMARY PROVIDER AND DR. LEÓN INSTRUCTED. ALL PERSONAL BELONGINGS GATHERED BY THE PATIENT AND PLACED IN BAGS FOR DISCHARGE, PATIENT REQUESTING TO CONSUME DINNER BEFORE LEAVING.
--- NOTE | 2019-10-27 17:40 | NUR ---
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
[2019-10-28] MEDS ORDERED: PANTOPRAZOLE 40 MG TABLET.DR. PO SCH (07:30)
== END 2019-10-27 17:40 | disposition home or self-care (01) ==
LOC: ER 09:40 → INTOOBSV 13:30 → 4 NORTH 13:30
PROVIDERS: ADMIT Internal Medicine; ATTEND Internal Medicine
DX: K29.80 Duodenitis without bleeding (principal); N28.89 Other specified disorders of kidney and ureter; I10 Essential (primary) hypertension; E11.9 Type 2 diabetes mellitus without complications; E78.5 Hyperlipidemia, unspecified; F17.200 Nicotine dependence, unspecified, uncomplicated; Z87.820 Personal history of traumatic brain injury; Z79.899 Other long term (current) drug therapy
CPT/HCPCS: 36415; 74177; 80048; 80053; 81001; 83540; 83550; 83690; 85025; 85027; 87338; 87505; 96361; 96374; 96376; 99285; C9113; G0378; J7030; Q9966; Q9967; G0379

== ENCOUNTER 2020-07-20 15:46 | Emergency (ER) | payer SELFPAY ==
[~2020-07-20] VITALS: Ht 177.8 cm; Wt 105.0 kg
[~2020-07-20 15:46] MED LIST: PANT40TA77 PO
[2020-07-20 15:58] VITALS: BP 156/105
== END 2020-07-20 16:08 | disposition left against medical advice (07) ==
LOC: ER 15:46
DX: H57.89 Other specified disorders of eye and adnexa (principal); Z53.21 Procedure and treatment not carried out due to patient leaving prior to being seen by health care provider

== ENCOUNTER 2021-09-20 11:59 | Emergency (ER) | payer SELFPAY ==
[~2021-09-20] VITALS: Ht 162.6 cm; Wt 79.5 kg
[2021-09-20] MEDS ORDERED: IBUPROFEN 400 MG TABLET. PO ONE (13:30)
--- NOTE | 2021-09-20 14:29 | RAD ---
Exam: XR KNEE _4 VIEWS WITH PATELLA_LT History: Cellulitis, pain. Comparison: None. Findings: Osseous mineralization is normal. No acute fracture or dislocaton. No aggressive osseous erosive proc ess. No significant degenerative changes. No subcutaneous emphysema. No focal soft tissue swelling. N o radiopaque foreign body. Impression: 1. No acute osseous abnormality of the left knee. Electronically signed by: Austin Jim MD (09/20/2021 2:27 PM) [id number]
[2021-09-20] MEDS ORDERED: SULF1TAB24 PO (14:41)
--- NOTE | 2021-09-20 14:46 | PHYS DOC ---
Past Medical History Past Medical History: Other Additional Past Medical Histor: GASTRIC ULCER Past Surgical History: No Surgical History Smoking Status: Never Smoker Alcohol Use: None General Adult EDM: Chief Complaint: KNEE INJURY HPI: HPI: Patient is a 40 year old male who presents with painful bump on his left knee. Patient states that about 1 week ago, he noticed a raised red bump on his left knee. Yesterday, he "stabbed it with something." He states that at that time, a small amount of blood and "white stuff" came out. Today, the redness has spread to the medial aspect of his knee. He states he had a similar bump about 3 weeks ago, which he popped and it went away. Patient denies fever, chills, generalized weakness, pain limiting knee movement. Review of Systems: Review of Systems: ROS negative or noncontributory except as mentioned in HPI. Heart Score: C/O Chest Pain: No Current Medications: Current Medications Medications (Trade) Dose Ordered Sig/Tasneem Start Time Stop Time Status Last Admin Dose Admin Ibuprofen (Motrin) 800 mg 1X ONCE 09/20/21 13:30 09/20/21 13:31 DC 09/20/21 13:33 800 MG Allergies: Allergies: Allergies Coded Allergies Type Severity Reaction Last Updated Verified No Known Drug Allergies 09/20/21 No Physical Exam: PE: Constitutional: Well developed, well nourished, no acute distress, non-toxic appearance. HENT: Normocephalic, atraumatic, bilateral external ears normal, nose normal. Eyes: EOMI, conjunctiva normal, no discharge. Neck: Normal range of motion, no stridor. Skin: Patient's left knee has a visible well-healing scab noted at the anterior aspect with surrounding erythema, no fluctuance or marked induration appreciated. Skin otherwise warm and dry. Extremities: Left knee tender around erythematous skin, no cyanosis, no clubbing, active and passive ROM intact, no edema. Neurologic: Alert and oriented x4, normal motor function, normal sensory function, no focal deficits noted. Current Patient Data: Vital Signs: Vital Signs Date Time Temp Pulse Resp B/P (MAP) Pulse Ox O2 Delivery O2 Flow Rate FiO2 09/20/21 14:57 88 20 118/86 (97) 96 09/20/21 12:00 98.3 98 22 134/83 (100) 95 Room Air 98.3 Radiology/Procedures: Radiology/Procedures: PROCEDURE: KNEE LEFT 4V Exam: XR KNEE _4 VIEWS WITH PATELLA_LT History: Cellulitis, pain. Comparison: None. Findings: Osseous mineralization is normal. No acute fracture or dislocaton. No aggressive osseous erosive process. No significant degenerative changes. No subcutaneous emphysema. No focal soft tissue swelling. No radiopaque foreign body. Impression: 1. No acute osseous abnormality of the left knee. Electronically signed by: Austin Jim MD (09/20/2021 2:27 PM) [id number] Course & Med Decision Making: Course & Med Decision Making Pertinent Labs and Imaging studies reviewed. (See chart for details) Patient appears to have cellulitis on the skin overlying his right knee. X-rays do not show any joint involvement. There is no abscess palpable to drain. Patient will be placed on p.o. antibiotics. Return precautions and wound care instructions were provided. Patient understands and is agreeable to discharge plan. Dragon Disclaimer: [place] Disclaimer: This electronic medical record was generated, in whole or in part, using a voice recognition dictation system. Departure Departure Impression: Primary Impression: Cellulitis of left knee Disposition: HOME / SELF CARE / HOMELESS Condition: STABLE Referrals: NO PCP (PCP) Patient Instructions: Cellulitis, [id number] Additional Instructions: EMERGENCY DEPARTMENT GENERAL DISCHARGE INSTRUCTIONS Thank you for coming to [facility] Emergency Department (ED) today and trusting us with you care. We trust that you had a positive experience in our Emergency Department. If you wish to speak to the department management, you may call the director at . YOUR FOLLOW UP INSTRUCTIONS ARE FOLLOWS: 1. Follow up with your primary care doctor. If you do not have a primary doctor, please ask for a resource list of physicians or clinics that may be able to assist you with follow up care. 2. The emergency provider has interpreted your imaging studies, if any were ordered. The radiology community education specialist also reviewed them. If there is a change in the findings, you will be notified in 48 hours when at all possible. 3. If a lab test or culture has been done, your results will be reviewed and you will be notified if you need a change in treatment. 4. Follow instructions verbalized to you and refer to the printouts if needed. ADDITIONAL INSTRUCTIONS AND INFORMATION: 1. Your care today has been supervised by a physician who is specially trained in emergency care. Many problems require more than one evaluation for a complete diagnosis and treatment. We recommend that you schedule your follow up appointment as recommended to ensure complete treatment of you illness or injury. If you are unable to obtain follow up care and continue to have a problem, or if your condition worsens, we recommend that you return to the ED. 2. We are not able to safely determine your condition over the phone nor are we able to give sound medical advice over the phone. For these safety reasons, if you call for medical advice we will ask you to come to the ED for further evaluation. 3. If you have any questions regarding these discharge instructions please call the ED at . SAFETY INFORMATION: In the interest of safety, wellness, and injury prevention; we encourage you to wear your seat belt, if you smoke; quite smoking, and we encourage family to use a protective helmet for bicycling and other sporting events that present an increased risk for head injury. IF YOUR SYMPTOMS WORSEN OR NEW SYMPTOMS DEVELOP, OR YOU HAVE CONCERNS ABOUT YOUR CONDITION; OR IF YOUR CONDITION WORSENS WHILE YOU ARE WAITING FOR YOUR FOLLOW UP APPOINTMENT; EITHER CONTACT YOUR PRIMARY CARE DOCTOR, THE PHYSICIAN WHOSE NAME AND NUMBER YOU WERE GIVEN, OR RETURN TO THE ED IMMEDIATELY. Scripts Sulfamethoxazole/Trimethoprim (BACTRIM DS TABLET) 1 Each Tablet 1 TAB PO BID for 7 Days, #14 TAB 0 Refills Prov: NOEL VALERIO 09/20/21 NOEL VALERIO September 20, 2021 14:46
[2021-09-20 14:57] VITALS: BP 118/86
== END 2021-09-20 14:56 | disposition home or self-care (01) ==
LOC: ER 11:59
DX: L03.116 Cellulitis of left lower limb (principal)
CPT/HCPCS: 73564; 99283